=== PATIENT | male | born 1970 | race Caucasian/White ===

== ENCOUNTER → 2021-04-11 | Outpatient (CLI) | payer OTHER ==
[2021-04-11 14:53] LABS: HEMOGLOBIN 13.8 gm/dl (14.0-17.5); RED BLOOD COUNT 5.15 M/UL (4.20-5.50); WHITE BLOOD COUNT 9.1 K/UL (4.5-11.0)
[2021-04-11 22:34] LABS: BUN/CREATININE RATIO 19 (0-10)
[2021-04-13 08:08] LABS: VITAMIN D, 25-HYDROXY 50.1 ng/mL (30.0-100.0)
[2021-04-13 12:09] LABS: C-PEPTIDE, SERUM 5.5 ng/mL (1.1-4.4)
== END ==
LOC: LAB 14:21
PROVIDERS: Family Medicine
DX: E11.9 Type 2 diabetes mellitus without complications (principal); E78.5 Hyperlipidemia, unspecified; I10 Essential (primary) hypertension; E55.9 Vitamin D deficiency, unspecified
CPT/HCPCS: 36415; 80053; 80061; 82043; 83036; 84153; 84436; 84439; 84443; 84681; 85027